=== PATIENT | female | born 1980 | race Hispanic/Latino ===

== ENCOUNTER 2022-09-29 10:41 | Emergency (ER) | payer BC ==
[2022-09-29] MEDS ORDERED: DEXAMETHASONE SOD PHOS INJ 4 MG/ML SDV ONE (10:59)
[2022-09-29] MEDS ORDERED: AMOXICILLIN500 MG PO (11:07)
[2022-09-29] MEDS ORDERED: DEXAMETHASONE SOD PHOS INJ 4 MG/ML SDV IM ONE (11:15)
== END 2022-09-29 11:29 | disposition home or self-care (01) ==
LOC: FSED 10:55
DX: R09.89 Other specified symptoms and signs involving the circulatory and respiratory systems (principal); J02.0 Streptococcal pharyngitis
CPT/HCPCS: 99282; J1100